=== PATIENT | male | born 1945 | race Caucasian/White ===

== ENCOUNTER 2018-03-30 11:25 | Emergency (ER) | payer MEDICARE, BC ==
[~2018-03-30] VITALS: Ht 175.3 cm; Wt 86.2 kg
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
--- NOTE | 2018-03-30 11:35 | NUR ---
DR BOWERS AT BEDSIDE FOR EVAL.
[2018-03-30] MEDS ORDERED: HYDROCODONE/APAP 5/325MG 1 EACH TABLET ONE (11:42)
--- NOTE | 2018-03-30 11:46 | NUR ---
PT REFUSED XRAY. DR BOWERS MADE AWARE.
[2018-03-30] MEDS ORDERED: HYDROCODONE/APAP 5/325MG 1 EACH TABLET PO ONE (12:00)
--- NOTE | 2018-03-30 12:19 | NUR ---
RADIOLOGY AT BEDSIDE FOR L HUMERUS XRAY.
--- NOTE | 2018-03-30 12:40 | NUR ---
SPLINT APPLIED. PT D/C HOME STABLE CONDITION.
[2018-03-30 12:41] VITALS: BP 127/76
== END 2018-03-30 12:42 | disposition home or self-care (01) ==
LOC: ER 11:27
DX: S40.022A Contusion of left upper arm, initial encounter (principal); M10.9 Gout, unspecified; Z86.73 Personal history of transient ischemic attack (TIA), and cerebral infarction without residual deficits; Z90.81 Acquired absence of spleen; W18.09XA Striking against other object with subsequent fall, initial encounter; Y93.01 Activity, walking, marching and hiking; Y92.89 Other specified places as the place of occurrence of the external cause; Y99.8 Other external cause status
CPT/HCPCS: 73060; 99284; A4606; Z7610

== ENCOUNTER 2018-10-13 09:41 | Emergency (ER) | payer MEDICARE, BC ==
[~2018-10-13] VITALS: Ht 172.7 cm; Wt 83.9 kg
[2018-10-13 09:46] VITALS: BP 132/71
== END 2018-10-13 10:22 | disposition home or self-care (01) ==
LOC: ER 09:49
DX: J20.9 Acute bronchitis, unspecified (principal); H66.92 Otitis media, unspecified, left ear; I10 Essential (primary) hypertension; E11.9 Type 2 diabetes mellitus without complications; Z95.5 Presence of coronary angioplasty implant and graft; Z90.81 Acquired absence of spleen
CPT/HCPCS: 99283; A4606

== ENCOUNTER 2023-05-14 02:53 | Emergency (ER) | payer MEDICARE, BC ==
[~2023-05-14] VITALS: Ht 165.1 cm; Wt 83.5 kg
[2023-05-14 04:17] LABS: BASOPHILS # (AUTO) 0.1 K/uL (0.0-0.2); EOSINOPHILS # (AUTO) 0.1 K/uL (0.0-0.7); EOSINOPHILS % (AUTO) 0.4 % (0.0-6.0); HEMATOCRIT 39 % (39-51); HEMOGLOBIN 12.9 g/dL (13.5-17.5); LYMPHOCYTES # (AUTO) 1.9 K/uL (0.8-4.8); LYMPHOCYTES % (AUTO) 15.1 % (20.0-44.0); MEAN CORPUSCULAR HEMOGLOBIN 33 PG (26.0-33.0); MEAN CORPUSCULAR HGB CONC 33 g/dl (31.0-36.0); MEAN CORPUSCULAR VOLUME 101 fL (80-96); MONOCYTES # (AUTO) 1.8 K/uL (0.1-1.30); MONOCYTES % (AUTO) 14.3 % (2.0-12.0); NEUTROPHILS # (AUTO) 8.8 K/uL (1.8-8.9); NEUTROPHILS % (AUTO) 69.2 % (43.0-81.0); PLATELET COUNT (AUTO) 227 K/uL (150-450); RED BLOOD CELL COUNT(AUTO) 3.88 MIL/uL (4.5-6.0); RED CELL DISTRIBUTION WIDTH 13.7 % (11.5-15.0); WHITE BLOOD COUNT (AUTO) 12.7 K/uL (4.3-11.0)
[2023-05-14 04:32] LABS: ALANINE AMINOTRANSFERASE 26 U/L (12-78); ALKALINE PHOSPHATASE 55 U/L (46-116); ASPARTATE AMINOTRANSFERASE 14 U/L (15-37); BILIRUBIN,DIRECT 0.1 mg/dL (0.0-0.2); BILIRUBIN,TOTAL 0.3 mg/dL (0.2-1.0); CARBON DIOXIDE 24 mmol/L (21-32); CHLORIDE 104 mmol/L (98-107); GLUCOSE 124 mg/dL (74-106); POTASSIUM 3.8 mmol/L (3.5-5.1); SODIUM SERUM 136 mmol/L (136-145); TOTAL PROTEIN, SERUM 7.5 g/dL (6.4-8.2); UREA NITROGEN, BLOOD 13 mg/dL (7-18)
[2023-05-14 04:36] LABS: CALCIUM, SERUM 8.9 mg/dL (8.5-10.1)
[2023-05-14] MEDS ORDERED: AMOX/CLAVULANATE 875 MG TABLET PO ONE (08:00)
[2023-05-14] MEDS ORDERED: AZITHROMYCIN 250 MG TABLET PO ONE (08:00)
[2023-05-14] MEDS ORDERED: AMOX/CLAVULANATE 875 MG TABLET ONE (08:01)
[2023-05-14] MEDS ORDERED: AZIT250T13 PO (08:01)
[2023-05-14] MEDS ORDERED: AMOX-430 PO (08:01)
[2023-05-14] MEDS ORDERED: AZITHROMYCIN 250 MG TABLET ONE (08:01)
[2023-05-14 08:52] VITALS: BP 128/77; TEMP 99.3; O2SAT 95
== END 2023-05-14 08:53 | disposition home or self-care (01) ==
LOC: ER 02:59
DX: R00.2 Palpitations (principal); I10 Essential (primary) hypertension; I48.91 Unspecified atrial fibrillation; Z20.822 Contact with and (suspected) exposure to COVID-19; Z86.73 Personal history of transient ischemic attack (TIA), and cerebral infarction without residual deficits; Z98.890 Other specified postprocedural states
CPT/HCPCS: 36415; 71045-TC; 80048-TC; 80076-TC; 84484-TC; 85025-TC; C9803

== ENCOUNTER 2023-08-28 10:38 | Emergency (ER) | payer MEDICARE, BC ==
[~2023-08-28] VITALS: Ht 172.7 cm; Wt 81.6 kg
[~2023-08-28 10:38] MED LIST: AMOX-430 PO; AZIT250T13 PO
[2023-08-28] MEDS ORDERED: diphenhydrAMINE HCL 25 MG CAPSULE PO ONE (11:30)
[2023-08-28] MEDS ORDERED: FAMOTIDINE (20 MG) 20 MG TABLET PO ONE (11:30)
[2023-08-28] MEDS ORDERED: predniSONE 50 MG TABLET PO ONE (11:30)
[2023-08-28] MEDS ORDERED: predniSONE 20 MG TABLET ONE ×2 (11:38→11:45)
[2023-08-28] MEDS ORDERED: diphenhydrAMINE HCL 25 MG CAPSULE ONE (11:38)
[2023-08-28] MEDS ORDERED: FAMOTIDINE (20 MG) 20 MG TABLET ONE (11:39)
[2023-08-28] MEDS ORDERED: PRED50TA PO (12:23)
[2023-08-28 12:30] VITALS: BP 150/62; TEMP 209.3; O2SAT 100
== END 2023-08-28 12:30 | disposition home or self-care (01) ==
LOC: ER 10:38
DX: R21 Rash and other nonspecific skin eruption (principal); I10 Essential (primary) hypertension; I48.91 Unspecified atrial fibrillation; Z20.822 Contact with and (suspected) exposure to COVID-19
CPT/HCPCS: 99284; 87426; Q0163; J7512